=== PATIENT | female | born 1965 | race Two or more races ===

== ENCOUNTER 2018-09-15 07:42 | Outpatient (CLI) | payer OTHER ==
[~2018-09-15 07:42] MED LIST: NORFLEX 30MG30 MG/ML IM; NORFLEX100 MG PO; PROTONIX40 MG PO; TORADOL10 MG PO; TORADOL30 MG IM; TRAMADOL HCL-AP1 TAB PO; ZANTAC300 MG PO; ZOFRAN4 MG PO; [UNRECOGNIZED DRUG - OTHER] PO
== END 2018-09-15 07:50 | disposition home or self-care (01) ==
LOC: RX STUDY 07:42
DX: R13.19 Other dysphagia (principal)

== ENCOUNTER 2019-02-19 20:00 | Emergency (ER) | payer OTHER ==
[~2019-02-19] VITALS: Ht 154.9 cm; Wt 63.5 kg
== END 2019-02-19 22:15 | disposition home or self-care (01) ==
LOC: ER 20:00
DX: N20.2 Calculus of kidney with calculus of ureter (principal); R10.31 Right lower quadrant pain; R10.11 Right upper quadrant pain

== ENCOUNTER 2020-07-14 17:39 | Emergency (ER) | payer OTHER ==
[~2020-07-14] VITALS: Ht 154.9 cm; Wt 65.3 kg
[2020-07-14] MEDS ORDERED: ECOTRIN81 MG (18:00)
[2020-07-14] MEDS ORDERED: CRESTOR40 MG (18:00)
[2020-07-14] MEDS ORDERED: CIPRO500 MG PO (21:29)
[2020-07-14] MEDS ORDERED: KETO10TA2 PO (21:29)
== END 2020-07-14 21:48 | disposition home or self-care (01) ==
LOC: ER 17:39
DX: N20.0 Calculus of kidney (principal); R10.32 Left lower quadrant pain

== ENCOUNTER 2021-01-05 17:37 | Emergency (ER) | payer OTHER ==
[~2021-01-05] VITALS: Ht 154.9 cm; Wt 66.2 kg
[~2021-01-05 17:37] MED LIST changes: +CIPRO500 MG PO; +CRESTOR40 MG; +ECOTRIN81 MG; +KETO10TA2 PO
[2021-01-05] MEDS ORDERED: DICLOFENAC SODI75 MG PO (19:51)
== END 2021-01-05 20:18 | disposition home or self-care (01) ==
LOC: ER 17:37
DX: S80.02XA Contusion of left knee, initial encounter (principal); S40.012A Contusion of left shoulder, initial encounter; S90.31XA Contusion of right foot, initial encounter; S30.0XXA Contusion of lower back and pelvis, initial encounter; M54.2 Cervicalgia; W18.09XA Striking against other object with subsequent fall, initial encounter; Y93.89 Activity, other specified; Y92.512 Supermarket, store or market as the place of occurrence of the external cause; Y99.8 Other external cause status

== ENCOUNTER 2021-02-21 08:27 | Outpatient (CLI) | payer OTHER ==
[~2021-02-21 08:27] MED LIST changes: +DICLOFENAC SODI75 MG PO
== END 2021-02-21 08:36 | disposition home or self-care (01) ==
LOC: MRI 08:27
PROVIDERS: ATTEND Physical Medicine & Rehabilitation
DX: S80.02XA Contusion of left knee, initial encounter (principal); M25.562 Pain in left knee; M54.2 Cervicalgia; M54.12 Radiculopathy, cervical region
CPT/HCPCS: 72142; 73721

== ENCOUNTER 2021-04-16 08:17 | Outpatient (CLI) | payer OTHER | END 2021-04-16 08:21 | disposition home or self-care (01) | LOC: RX STUDY 08:17 | PROVIDERS: ATTEND Internal Medicine Gastroenterology | DX: K44.9 Diaphragmatic hernia without obstruction or gangrene (principal); R07.9 Chest pain, unspecified ==

== ENCOUNTER → 2021-04-30 06:58 | Outpatient (CLI) | payer OTHER | END | disposition home or self-care (01) | LOC: MRI 06:58 | PROVIDERS: ATTEND Physical Medicine & Rehabilitation | DX: M25.512 Pain in left shoulder (principal); M75.32 Calcific tendinitis of left shoulder | CPT/HCPCS: 73221 ==

== ENCOUNTER 2022-10-21 10:47 | Outpatient (CLI) | payer OTHER | END 2022-10-21 10:48 | disposition home or self-care (01) | LOC: LAB 10:47 | PROVIDERS: ATTEND Internal Medicine Gastroenterology | DX: Z11.52 Encounter for screening for COVID-19 (principal); Z20.822 Contact with and (suspected) exposure to COVID-19; Z20.828 Contact with and (suspected) exposure to other viral communicable diseases ==

== ENCOUNTER 2023-11-12 07:24 | Emergency (ER) | payer OTHER ==
[~2023-11-12] VITALS: Ht 154.9 cm; Wt 61.2 kg
[2023-11-12] MEDS ORDERED: NORVASC5 MG PO (08:20)
[2023-11-12] MEDS ORDERED: KETO10TA2 PO (10:56)
== END 2023-11-12 14:33 | disposition home or self-care (01) ==
LOC: ER 07:24
DX: S20.211A Contusion of right front wall of thorax, initial encounter (principal); W19.XXXA Unspecified fall, initial encounter; Y93.E9 Activity, other interior property and clothing maintenance; Y92.018 Other place in single-family (private) house as the place of occurrence of the external cause; Y99.9 Unspecified external cause status; I10 Essential (primary) hypertension; M50.30 Other cervical disc degeneration, unspecified cervical region; M43.8X6 Other specified deforming dorsopathies, lumbar region
CPT/HCPCS: 71110; 72040; 72070; 72100; 96372; 99284; J1885; J2360

== ENCOUNTER 2023-11-17 12:35 | Emergency (ER) | payer OTHER ==
[~2023-11-17] VITALS: Ht 154.9 cm; Wt 60.3 kg
[~2023-11-17 12:35] MED LIST changes: +NORVASC5 MG PO
== END 2023-11-17 17:45 | disposition home or self-care (01) ==
LOC: ER 12:36
DX: S20.219A Contusion of unspecified front wall of thorax, initial encounter (principal); W18.39XA Other fall on same level, initial encounter; Y93.89 Activity, other specified; Y92.89 Other specified places as the place of occurrence of the external cause; M94.0 Chondrocostal junction syndrome [Tietze]; M62.838 Other muscle spasm; M19.90 Unspecified osteoarthritis, unspecified site; E78.00 Pure hypercholesterolemia, unspecified; I10 Essential (primary) hypertension; M81.8 Other osteoporosis without current pathological fracture
CPT/HCPCS: 71046; 96372; 99283; J1885; J2405

== ENCOUNTER 2024-08-05 07:07 | Outpatient (CLI) | payer OTHER | END 2024-08-05 07:08 | disposition home or self-care (01) | LOC: NUCLEAR 07:07 | PROVIDERS: ATTEND Internal Medicine Gastroenterology | DX: R13.14 Dysphagia, pharyngoesophageal phase (principal) | CPT/HCPCS: 78264; A9541 ==